=== PATIENT | female | born 1965 | race African-American/Black ===

== ENCOUNTER → 2023-08-03 | Day surgery (SDC) | payer OTHER | END | disposition home or self-care (01) | LOC: JMAMMO-SUR 11:37 → JRADUS-SUR 11:37 | PROVIDERS: ATTEND Surgery | PROC: BH00ZZZ Plain Radiography of Right Breast (ICD-10-PCS; principal; 2023-08-03) | DX: D05.11 Intraductal carcinoma in situ of right breast (principal) | CPT/HCPCS: 19281; A4648 ==

== ENCOUNTER 2023-08-05 04:30 | Day surgery (SDC) | payer OTHER ==
[2023-07-30 11:05] VITALS: BMI 34.0
[2023-08-05] MEDS ORDERED: oxyCODONE HCL 5 MG TABLET PO PRN (12:36)
[2023-08-05] MEDS ORDERED: ONDANSETRON 4 MG/2 ML VIAL IVPUSH PRN (12:36)
[2023-08-05] MEDS ORDERED: LACTATED RINGERS SOLUTION 1,000 ML IV SCH (12:45)
[2023-08-05] MEDS ORDERED: LIDOCAINE HCL 1%, 10 MG/ML (20ML VIAL) ONE (13:33)
[2023-08-05] MEDS ORDERED: ISOSULFAN BLUE 50 MG/5 ML VIAL SQ ONE (13:33)
[2023-08-05] MEDS ORDERED: PROPOFOL 20 ML ONE ×2 (14:06→14:55)
[2023-08-05] MEDS ORDERED: MIDAZOLAM HCL 2 MG/2 ML SINGLE DOSE VIAL ONE (14:07)
[2023-08-05] MEDS: ceFAZolin SODIUM 1 GM VIAL IVPB ONE (15:03)
[2023-08-05] MEDS: LIDOCAINE HCL 1%, 10 MG/ML (20ML VIAL) INF ONE ×3 (15:16)
[2023-08-05] MEDS: ACETAMINOPHEN 1000 MG/100 ML BAG IVPB ONE ×2 (16:39→18:16)
[2023-08-05] MEDS ORDERED: oxyCODONE HCL 5 MG TABLET ONE (18:13)
[2023-08-05] MEDS: oxyCODONE HCL 5 MG TABLET PO ONE (18:18)
[2023-08-05 18:26] VITALS: RESP 16; TEMP 96.9
[2023-08-05 19:11] VITALS: BP 153/96; PULSE 68
== END 2023-08-05 19:10 | disposition home or self-care (01) ==
LOC: JASU-SURG 04:30
PROVIDERS: ATTEND Surgery
PROC: 0HBT0ZZ Excision of Right Breast, Open Approach (ICD-10-PCS; principal; 2023-08-05 14:30)
DX: D05.11 Intraductal carcinoma in situ of right breast (principal)
CPT/HCPCS: 76098-TC-FY; 78195-TC; 88307-TC; 88341-TC; 88342-TC; 94760; A9541; J0131